=== PATIENT | male | born 1980 | race Caucasian/White ===

== ENCOUNTER 2022-03-05 10:00 | Inpatient (IN) | payer OTHER ==
[~2022-03-05] VITALS: Ht 320 cm; Wt 68.9 kg
[2022-03-05] MEDS ORDERED: ONDANSETRON HCL 4MG TABLET PO ONE (11:30)
[2022-03-05 11:46] LABS: CHLORIDE 105 mEq/L (98-107)
[2022-03-05 11:53] LABS: HEMOGLOBIN. 15.2 g/dL (14.0-18.0); MEAN CORPUSCULAR HEMOGLOBIN 30.2 pg (28.0-32.0); MEAN CORPUSCULAR VOLUME 87.5 fL (80.0-94.0); MEAN PLATELET VOLUME 11.3 fl (7.4-10.4); PLATELET 166 x1000/uL (130-400); RED BLOOD CELL COUNT 5.02 mill/uL (4.7-6.1)
[2022-03-05 12:04] LABS: CLARITY URINE CLOUDY (CLEAR); COLOR URINE YELLOW (YELLOW); KETONES URINE 3+ (NEGATIVE); LEUKOCYTE ESTERASE URINE NEGATIVE (NEGATIVE); NITRITE URINE NEGATIVE (NEGATIVE); OCCULT BLOOD URINE NEGATIVE (NEGATIVE); PROTEIN URINE 1+ (NEGATIVE); SPECIFIC GRAVITY URINE 1.031 (1.005-1.030)
[2022-03-05 13:01] LABS: PLATELET ESTIMATE NORMAL
[2022-03-05] MEDS ORDERED: SODIUM CHLORIDE 0.9% 100 ML IV ONE (15:15)
[2022-03-05] MEDS ORDERED: LORAZEPAM 0.5MG TABLET PO PRN (22:30)
[2022-03-05] MEDS ORDERED: ACETAMINOPHEN 325MG TABLET PO PRN ×2 (22:30)
[2022-03-05] MEDS ORDERED: MAGNESIUM/ALUMINUM HYDROXIDE/SIMETHICONE 30ML UDC PO PRN (22:30)
[2022-03-05] MEDS ORDERED: CLONIDINE 0.1MG TABLET PO PRN (22:30)
[2022-03-05] MEDS ORDERED: IPRATROPIUM/ALBUTEROL 0.5-3(2.5)MG/3ML NEB HHN PRN (22:30)
[2022-03-05] MEDS ORDERED: IPRATROPIUM/ALBUTEROL 0.5-3(2.5)MG/3ML NEB NEB PRN (22:30)
[2022-03-06] MEDS: DEXT 5%/0.45% NACL 1000ML 1,000 ML IV SCH ×4 (01:32→17:54)
[2022-03-06 03:47] VITALS: BP 107/57
[2022-03-06] MEDS: HYDROCODONE/ACETAMINOPHEN 10/325MG TABLET PO PRN (04:47)
[2022-03-06 08:00] VITALS: BP 98/54
[2022-03-06] MEDS: PANTOPRAZOLE SODIUM 40 MG/VIAL IV SCH (08:27)
[2022-03-06] MEDS: ENOXAPARIN 40MG/0.4ML SYR SUBCUT SCH (10:07)
[2022-03-06 11:05] LABS: T4 FREE 1.01 ng/dL (0.76-1.46)
[2022-03-06 12:00] VITALS: BP 100/57
[2022-03-06] MEDS: HYDROCODONE/ACETAMINOPHEN 5/325MG TABLET PO PRN (14:24)
[2022-03-06] MEDS ORDERED: NALOXONE HCL 0.4MG/ML VIAL IV PRN (14:30)
[2022-03-06 16:00] VITALS: BP 101/59
[2022-03-06 20:00] VITALS: BP 110/64
[2022-03-07] VITALS: BP 104/61
[2022-03-07 04:00] VITALS: BP 102/56
[2022-03-07] MEDS: DEXT 5%/0.45% NACL 1000ML 1,000 ML IV SCH ×2 (05:18→15:24)
[2022-03-07 08:00] VITALS: BP 102/58
[2022-03-07] MEDS: PANTOPRAZOLE SODIUM 40 MG/VIAL IV SCH (08:16)
[2022-03-07] MEDS: ENOXAPARIN 40MG/0.4ML SYR SUBCUT SCH (11:05)
[2022-03-07 13:12] LABS: CHLORIDE 99 mEq/L (98-107)
[2022-03-07] MEDS ORDERED: IPRATROPIUM BROMIDE (0.02%) 0.5MG/2.5ML NEB HHN PRN (13:15)
[2022-03-07] MEDS ORDERED: ALBUTEROL (0.083%) 2.5MG/3ML NEB HHN PRN (13:15)
[2022-03-07 16:00] VITALS: BP 99/64
[2022-03-07] MEDS: HYDROCODONE/ACETAMINOPHEN 5/325MG TABLET PO PRN (17:57)
[2022-03-07 20:40] VITALS: BP 101/57
[2022-03-08] MEDS ORDERED: DEXAMETHASONE 4MG TABLET PO SCH
[2022-03-08] MEDS ORDERED: LEVETIRACETAM 500MG TABLET PO SCH
[2022-03-08 00:23] VITALS: BP 109/66
[2022-03-08] MEDS: DEXT 5%/0.45% NACL 1000ML 1,000 ML IV SCH ×3 (03:13→20:58)
[2022-03-08] MEDS: HYDROCODONE/ACETAMINOPHEN 10/325MG TABLET PO PRN ×2 (04:36→20:58)
[2022-03-08 06:54] VITALS: BP 92/54
[2022-03-08 08:00] VITALS: BP 110/66
[2022-03-08] MEDS: FAMOTIDINE 20MG/2ML VIAL IV SCH ×2 (08:48→20:57)
[2022-03-08] MEDS: ENOXAPARIN 40MG/0.4ML SYR SUBCUT SCH (09:38)
[2022-03-08 12:00] VITALS: BP 110/64
[2022-03-08 13:13] LABS: BASOPHILS % 0.1 % (0.0-2.0); HEMOGLOBIN. 13.1 g/dL (14.0-18.0); LYMPHOCYTES % 10.4 % (20.0-50.0); MEAN CORPUSCULAR HEMOGLOBIN 30.7 pg (28.0-32.0); MEAN CORPUSCULAR VOLUME 89.4 fL (80.0-94.0); MEAN PLATELET VOLUME 11.5 fl (7.4-10.4); MONOCYTES % 11.3 % (2.0-8.0); NEUTROPHILS % 78.2 % (40.0-76.0); PLATELET 147 x1000/uL (130-400); RED BLOOD CELL COUNT 4.25 mill/uL (4.7-6.1); RED CELL DISTRIBUTION WIDTH 12.9 % (11.6-14.6)
[2022-03-08 16:00] VITALS: BP 109/53
[2022-03-08 20:00] VITALS: BP 118/68
[2022-03-09] VITALS: BP 114/65
[2022-03-09 04:00] VITALS: BP 110/68
[2022-03-09] MEDS: DEXT 5%/0.45% NACL 1000ML 1,000 ML IV SCH ×2 (06:19→16:30)
[2022-03-09 08:00] VITALS: BP 95/55
[2022-03-09] MEDS: FAMOTIDINE 20MG/2ML VIAL IV SCH ×2 (09:00→20:57)
[2022-03-09] MEDS: ENOXAPARIN 40MG/0.4ML SYR SUBCUT SCH (10:00)
[2022-03-09 12:00] VITALS: BP 101/59
[2022-03-09] MEDS: HYDROCODONE/ACETAMINOPHEN 5/325MG TABLET PO PRN ×2 (13:00→18:54)
[2022-03-09] MEDS ORDERED: DIATR MEGLU/DIATRIZOATE SOLN 120ML ONE (13:14)
[2022-03-09 16:00] VITALS: BP 97/54
[2022-03-09 20:00] VITALS: BP 110/58
[2022-03-09] MEDS ORDERED: ACETAMINOPHEN 650MG SUPP PR NR (22:45)
[2022-03-09] MEDS: HYDROMORPHONE HCL/PF 2MG/ML CPJ IV PRN (23:32)
[2022-03-09] MEDS: ONDANSETRON HCL 4MG/2ML INJ IV PRN (23:38)
[2022-03-10] VITALS: BP 112/69
[2022-03-10] MEDS: DEXT 5%/0.45% NACL 1000ML 1,000 ML IV SCH ×3 (01:55→22:12)
[2022-03-10 04:00] VITALS: BP 101/60
[2022-03-10 08:00] VITALS: BP 106/68
[2022-03-10] MEDS: FAMOTIDINE 20MG/2ML VIAL IV SCH ×2 (09:38→20:42)
[2022-03-10] MEDS: ENOXAPARIN 40MG/0.4ML SYR SUBCUT SCH (09:38)
[2022-03-10] MEDS: ONDANSETRON HCL 4MG/2ML INJ IV PRN ×2 (10:52→20:49)
[2022-03-10 16:00] VITALS: BP 122/73
[2022-03-10] MEDS: HYDROMORPHONE HCL/PF 2MG/ML CPJ IV PRN ×2 (16:54→22:08)
[2022-03-10 20:00] VITALS: BP 102/58
[2022-03-11] VITALS: BP 108/52
[2022-03-11 04:00] VITALS: BP 110/58
[2022-03-11] MEDS: ONDANSETRON HCL 4MG/2ML INJ IV PRN (04:42)
[2022-03-11 08:00] VITALS: BP 93/54
[2022-03-11] MEDS: DEXT 5%/0.45% NACL 1000ML 1,000 ML IV SCH (08:30)
[2022-03-11] MEDS: FAMOTIDINE 20MG/2ML VIAL IV SCH (09:00)
[2022-03-11] MEDS: ENOXAPARIN 40MG/0.4ML SYR SUBCUT SCH (10:00)
[2022-03-11] MEDS: HYDROMORPHONE HCL/PF 2MG/ML CPJ IV PRN (11:18)
[2022-03-11 12:00] VITALS: BP 105/63
[2022-03-11 16:00] VITALS: BP 108/61
[2022-03-11] MEDS ORDERED: NALOXONE HCL 0.4MG/ML VIAL IV PRN (19:15)
== END 2022-03-11 17:01 | disposition short-term general hospital (02) | DRG 390 ==
LOC: ER 10:00 → MICUSO 17:24 → EDBEDREQ 17:26 → EDBEDREQTM 17:26 → 6EST 03-06 02:42
PROVIDERS: ADMIT Hospitalist; ATTEND Hospitalist
DX: K56.609 Unspecified intestinal obstruction, unspecified as to partial versus complete obstruction (principal); D72.829 Elevated white blood cell count, unspecified; Z20.822 Contact with and (suspected) exposure to COVID-19; Z79.899 Other long term (current) drug therapy
CPT/HCPCS: 36415; 74018; 74176; 74250; 80048; 80053; 80061; 81003; 84439; 84443; 85025; 87426; 93970; 99285; C9113; J1170; J1650; J2405; J3490; J7050; J8540; Q0162; Q9963